=== PATIENT | male | born 1995 | race Caucasian/White ===

== ENCOUNTER 2020-10-11 11:44 | Emergency (ER) | payer OTHER ==
[2020-10-11 14:11] LABS: HEMOGLOBIN 18.4 gm/dl (14.0-17.5); RED BLOOD COUNT 5.98 M/UL (4.20-5.50); WHITE BLOOD COUNT 9.2 K/UL (4.5-11.0)
[2020-10-11 14:33] LABS: BUN/CREATININE RATIO 15 (0-10)
== END 2020-10-11 16:48 | disposition home or self-care (01) ==
LOC: ER1 11:44
PROVIDERS: Emergency Medicine
DX: K76.0 Fatty (change of) liver, not elsewhere classified (principal); E87.6 Hypokalemia; E80.6 Other disorders of bilirubin metabolism; Z21 Asymptomatic human immunodeficiency virus [HIV] infection status; Z86.19 Personal history of other infectious and parasitic diseases; Z87.19 Personal history of other diseases of the digestive system; Z88.8 Allergy status to other drugs, medicaments and biological substances
CPT/HCPCS: 80053; 81001; 83690; 85025; 96374; 96375; 99284; Q9967

== ENCOUNTER 2020-11-12 16:59 | Emergency (ER) | payer SELFPAY | END 2020-11-12 17:56 | disposition left against medical advice (07) | LOC: ER1 16:59 | DX: Z53.21 Procedure and treatment not carried out due to patient leaving prior to being seen by health care provider (principal) ==

== ENCOUNTER 2020-11-13 10:48 | Emergency (ER) | payer OTHER ==
[2020-11-13 12:42] LABS: HEMOGLOBIN 16.4 gm/dl (14.0-17.5); RED BLOOD COUNT 5.37 M/UL (4.20-5.50); WHITE BLOOD COUNT 7.9 K/UL (4.5-11.0)
[2020-11-13 13:02] LABS: BUN/CREATININE RATIO 18 (0-10)
[2020-11-14 14:14] LABS: % CD 4 POS. LYMPH. 25.5 % (30.8-58.5); ABSOLUTE CD 4 HELPER 969 /uL (359-1519); BASOS 0 % (Not Estab.); EOS 2 % (Not Estab.); EOS (ABSOLUTE) 0.2 x10E3/uL (0.0-0.4); HEMATOCRIT 46.5 % (37.5-51.0); HEMATOLOGY COMMENTS: Note: (.); HEMOGLOBIN 16.2 g/dL (13.0-17.7); IMMATURE GRANS (ABS) 0.1 x10E3/uL (0.0-0.1); IMMATURE GRANULOCYTES 1 % (Not Estab.); LYMPHS 51 % (Not Estab.); LYMPHS (ABSOLUTE) 3.8 x10E3/uL (0.7-3.1); MCH 30.6 pg (26.6-33.0); MCHC 34.8 g/dL (31.5-35.7); MCV 88 fL (79-97); MONOCYTES 9 % (Not Estab.); MONOCYTES(ABSOLUTE) 0.7 x10E3/uL (0.1-0.9); NEUTROPHILS 37 % (Not Estab.); NEUTROPHILS (ABSOLUTE) 2.8 x10E3/uL (1.4-7.0); PLATELETS 109 x10E3/uL (150-450); RBC 5.29 x10E6/uL (4.14-5.80); RDW 12.9 % (11.6-15.4); WBC 7.6 x10E3/uL (3.4-10.8)
== END 2020-11-13 16:48 | disposition home or self-care (01) ==
LOC: ER1 10:48
PROVIDERS: Physician Assistant
DX: R53.81 Other malaise (principal); R53.83 Other fatigue; Z20.822 Contact with and (suspected) exposure to COVID-19; I10 Essential (primary) hypertension; Z86.19 Personal history of other infectious and parasitic diseases; Z21 Asymptomatic human immunodeficiency virus [HIV] infection status
CPT/HCPCS: 0240U; 71045; 80053; 81001; 84439; 84443; 85025; 86361; 99283

== ENCOUNTER 2020-12-22 16:29 | Emergency (ER) | payer OTHER ==
[2020-12-22] MEDS ORDERED: AUGMENTIN 875-1 EACH PO (17:07)
[2020-12-22] MEDS ORDERED: IBUPROFEN800 MG PO (17:07)
== END 2020-12-22 17:40 | disposition home or self-care (01) ==
LOC: ER1 16:29
DX: K02.9 Dental caries, unspecified (principal); F17.210 Nicotine dependence, cigarettes, uncomplicated; Z79.899 Other long term (current) drug therapy
CPT/HCPCS: 96372; 99282; J1885

== ENCOUNTER 2021-01-24 02:31 | Emergency (ER) | payer OTHER ==
[~2021-01-24 02:31] MED LIST: AUGMENTIN 875-1 EACH PO; IBUPROFEN800 MG PO
== END 2021-01-24 04:06 | disposition left against medical advice (07) ==
LOC: ER1 02:31
DX: Z53.21 Procedure and treatment not carried out due to patient leaving prior to being seen by health care provider (principal)
CPT/HCPCS: 93005

== ENCOUNTER 2021-02-20 09:07 | Emergency (ER) | payer OTHER ==
[2021-02-20] MEDS ORDERED: IBUPROFEN600 MG PO (09:29)
[2021-02-20] MEDS ORDERED: AMOXICILLIN500 MG PO (09:29)
== END 2021-02-20 09:52 | disposition home or self-care (01) ==
LOC: ER1 09:07
DX: R68.84 Jaw pain (principal); I10 Essential (primary) hypertension; F17.200 Nicotine dependence, unspecified, uncomplicated; Z86.19 Personal history of other infectious and parasitic diseases
CPT/HCPCS: 99283

== ENCOUNTER 2021-02-22 22:07 | Emergency (ER) | payer OTHER ==
[~2021-02-22 22:07] MED LIST changes: +AMOXICILLIN500 MG PO; +IBUPROFEN600 MG PO
[2021-02-22 23:12] LABS: HEMOGLOBIN 13.8 gm/dl (14.0-17.5); RED BLOOD COUNT 4.67 M/UL (4.20-5.50); WHITE BLOOD COUNT 8.4 K/UL (4.5-11.0)
[2021-02-22 23:27] LABS: BUN/CREATININE RATIO 15 (0-10)
[2021-02-23] MEDS ORDERED: CLEOCIN HCL150 MG PO (02:43)
[2021-02-23] MEDS ORDERED: LODINE CAP 300300 MG PO (02:43)
== END 2021-02-23 04:09 | disposition home or self-care (01) ==
LOC: ER1 22:07
PROVIDERS: Nurse Practitioner
DX: K04.7 Periapical abscess without sinus (principal); K02.9 Dental caries, unspecified; K05.10 Chronic gingivitis, plaque induced; B20 Human immunodeficiency virus [HIV] disease; F17.210 Nicotine dependence, cigarettes, uncomplicated; Z88.8 Allergy status to other drugs, medicaments and biological substances; Z79.899 Other long term (current) drug therapy
CPT/HCPCS: 70487; 80053; 83605; 85025; 99283; Q9967